=== PATIENT | female | born 1935 | race Caucasian/White ===

== ENCOUNTER 2017-09-26 17:02 | Emergency (ER) | payer OTHER ==
[~2017-09-26] VITALS: Ht 157.5 cm; Wt 68.5 kg
[2017-09-26 17:12] VITALS: BP_SYST 207
--- NOTE | 2017-09-26 18:15 | NUR ---
Patient to ER [facility] to [facility] for evaluation. Side rails up. Report given to Jessica HOUSTON.
--- NOTE | 2017-09-26 18:20 | NUR ---
LUDWIG Rubio MACHINE STAPLER at bedside examining patient.
--- NOTE | 2017-09-26 18:22 | NUR ---
Pt presents to the ED c/o 02/19 throbbing R knee pain s/p twisting leg today. Pt states she was diagnosed with burisitis and was feeling weak and twisted her R leg, fell forward and caught her self on the kitchen sink. Pt had used a stick and ambrocio wrap to immobilize her leg before arrival to ED. No active bleeding/deformities noted on site. Pt denies LOC/N/V s/p fall. No other injuries/complaints per pt/noted. Will continue to monitor.
[2017-09-26] MEDS: HYDROcodone/ACETAMIN 5-325 MG TAB (NORCO/ VICODIN) PO ONE (18:29)
--- NOTE | 2017-09-26 18:29 | NUR ---
Medication administered. Pt tolerated well. No adverse reactions noted.
[2017-09-26 19:00] VITALS: BP_SYST 150
--- NOTE | 2017-09-26 19:00 | NUR ---
Patient given written and verbal discharge instructions and verbalizes understanding. LUDWIG Rubio FOREST MANAGER discussed with patient the results and treatment provided. Patient in stable condition. ID arm band removed. Rx of Barak Arenas given. Patient educated on pain management and to follow up with PMD. Pain Scale 0. Opportunity for questions provided and answered.
== END 2017-09-26 19:00 | disposition home or self-care (01) ==
LOC: SED 17:02
DX: S86.911A Strain of unspecified muscle(s) and tendon(s) at lower leg level, right leg, initial encounter (principal); I10 Essential (primary) hypertension; Z90.710 Acquired absence of both cervix and uterus; Z95.9 Presence of cardiac and vascular implant and graft, unspecified; X58.XXXA Exposure to other specified factors, initial encounter; Y93.01 Activity, walking, marching and hiking; Y92.090 Kitchen in other non-institutional residence as the place of occurrence of the external cause; Y99.8 Other external cause status
CPT/HCPCS: 73564; 99284

== ENCOUNTER 2022-07-02 11:43 | Emergency (ER) | payer OTHER ==
[~2022-07-02] VITALS: Ht 157.5 cm; Wt 69.9 kg
[2022-07-02 11:50] VITALS: BP_SYST 199
--- NOTE | 2022-07-02 12:20 | NUR ---
Placed in room 08 . Placed on campus monitor, blood pressure machine and pulse oximeter. To gown for exam. Side rails up. Report given to CELSO SPARKS.
--- NOTE | 2022-07-02 12:25 | NUR ---
ER DR. LLOYD EXAMINING PT
--- NOTE | 2022-07-02 12:27 | NUR ---
PT CAME IN C/O R KNEE PAIN TIMES ONE WEEK. STATES FALL OCCURRED ONE WEEK PRIOR AND PAIN HAS NOT IMPROVED. PT HAS HX OF HEART STENT PLACEMENT, BLADDER SURGEY AND HYSTERECTOMY. VSS STABLE, PATIENT IN NO ACUTE DISTRESS AT THIS TIME. CARE WILL BE PROVIDED ORDERED.
[2022-07-02] MEDS ORDERED: HYDR-3917 PO (13:17)
[2022-07-02] MEDS ORDERED: IBUP-1969 PO (13:17)
--- NOTE | 2022-07-02 14:08 | NUR ---
Patient given written and verbal discharge instructions and verbalizes understanding. ER DR. PREMA DE LA CRUZ discussed with patient the results and treatment provided. Patient in stable condition. ID arm band removed. Rx of HYDROCODONE & IBUPROFEN given. Patient educated on pain management and to follow up with PMD. Pain Scale 4/10. Opportunity for questions provided and answered. Medication side effect fact sheet provided.
== END 2022-07-02 14:08 | disposition home or self-care (01) ==
LOC: SED 11:43
DX: S83.411A Sprain of medial collateral ligament of right knee, initial encounter (principal); E11.9 Type 2 diabetes mellitus without complications; I10 Essential (primary) hypertension; Z79.899 Other long term (current) drug therapy; W10.8XXA Fall (on) (from) other stairs and steps, initial encounter; Y93.89 Activity, other specified; Y92.89 Other specified places as the place of occurrence of the external cause; Y99.8 Other external cause status
CPT/HCPCS: 73564; 99283